=== PATIENT | female | born 1950 ===

== ENCOUNTER 2019-10-29 08:08 | Outpatient (CLI) | payer MEDICARE ==
--- NOTE | 2019-10-29 11:09 | MRI ---
MRI CERVICAL SPINE WITHOUT CONTRAST: Date: 10/29/2019 INDICATION: Cervical displacement at C6-7. No comparison MRI or CT studies. Correlation made to cervical spine films of 09/01/2019. FINDINGS: There are moderate degenerative changes of the cervical spine. Degenerative disc changes seen at C4-5 , C5-6, C6-7, and C7-T1 with loss of disc space, anterior osteophytes from the cervical vertebra at t hese levels and posterior spondylosis at these levels. Vertebral bodies maintain height and alignment . Vertebral body signal is preserved. Findings at each level are described. C2-3: No significant disc bulge or spondylosis. No significant abnormality. C3-4: Mild disc bulge centrally. There is asymmetric disc bulge/spondylosis paracentrally to the rig ht which encroaches into the right foramina and does appear to displace the exiting right C4 nerve ro ot. No cord impingement. C4-5: Posterior disc bulge and spondylosis abuts and mildly flattens the anterior cord. Mild right f oraminal narrowing due to facet and uncinate hypertrophy. C5-6: Disc bulge and spondylosis efface the anterior subarachnoid space and abut the anterior cord w ithout significant cord impingement. Mild foraminal narrowing. C6-7: Disc bulge and spondylosis abut the anterior cord. Left foraminal narrowing secondary to facet and uncinate hypertrophy. C7-T1: Disc bulge and spondylosis efface the anterior subarachnoid space. No evidence of cord imping ement. There may be right foraminal encroachment due to uncinate hypertrophy. Cervical cord signal is normally maintained. IMPRESSION: Multilevel degenerative disc changes of the cervical spine most prominent at C4-5, C5-6, and C6-7 as described above. POS: AGW
--- NOTE | 2019-10-29 12:02 | MRI ---
MRI LUMBAR SPINE WITHOUT CONTRAST: INDICATION: Lumbar radicular pain. Low back pain. FINDINGS: Slight curvature to the right. The lumbar vertebrae maintain normal height and alignment. Degenerat cathy disk changes are seen throughout. Loss of disk space is most pronounced at T12-L1, L1-2, and L2- 3 levels. Degenerative disk and end plate changes are prominent at these levels. The disk spaces at L3-4, L4-5, and L5-S1 are better preserved. There is a slight anterolisthesis at L3-4 and a grade I anterolisthesis at L4-5. At T12-L1, mild disk bulge flattens the anterior thecal sac. No central canal or foraminal stenosis. At L1-2, diffuse disk bulge flattens the anterior thecal sac. Moderate facet hypertrophy. Mild cent ral canal stenosis. Left foraminal stenosis due to asymmetric disk-osteophyte complex projecting to the left and associated left facet hypertrophy. L2-3: Broad-based disk bulge. Prominent facet and ligamentous hypertrophy. Mild central canal sten osis. Left foraminal stenosis due to disk bulge and facet hypertrophy. L3-4: Mild diffuse disk bulge flattens the anterior thecal sac. Facet and ligamentous hypertrophy. Mild central canal stenosis. No significant foraminal stenosis. At L4-5, anterolisthesis with diffuse disk bulge. Prominent facet and ligamentous hypertrophy. Mode rate central canal stenosis. Right foraminal stenosis secondary to disk-osteophyte complex projectin g into the foramina and associated facet hypertrophy. These changes appear to contact the exiting ri ght L4 nerve root. L5-S1: Mild disk bulge. No central canal stenosis. Mild right foraminal encroachment due to disk b ulge and facet hypertrophy. IMPRESSION: Multilevel degenerative disk changes. Central canal stenosis most prominent at L4-5 as described abo [place]. POS: AGW
== END 2019-10-29 08:09 | disposition home or self-care (01) ==
LOC: BICMRI 08:08
PROVIDERS: ATTEND Family Medicine
DX: M50.223 Other cervical disc displacement at C6-C7 level (principal); M47.26 Other spondylosis with radiculopathy, lumbar region; M48.061 Spinal stenosis, lumbar region without neurogenic claudication; M47.812 Spondylosis without myelopathy or radiculopathy, cervical region
CPT/HCPCS: 72141; 72148